=== PATIENT | male | born 1960 | race Caucasian/White ===

== ENCOUNTER 2018-05-18 11:30 | Emergency (ER) | payer OTHER ==
[~2018-05-18] VITALS: Ht 185.4 cm; Wt 101.6 kg
[~2018-05-18 11:30] MED LIST: ACID1TAB7 PO; CLIN300C8 PO
[2018-05-18 11:38] VITALS: BP 182/116
[2018-05-18] MEDS ORDERED: DIPH,PERTUSS(ACELL),TET VAC/PF 0.5 ML IM-VACC ONE ×2 (12:07→12:30)
[2018-05-18] MEDS ORDERED: BACITRACIN ZINC OINT 500U/GM, 0.9 GM ONE ×2 (12:07→12:23)
== END 2018-05-18 12:45 | disposition home or self-care (01) ==
LOC: ED 12:28
DX: S01.01XA Laceration without foreign body of scalp, initial encounter (principal); X58.XXXA Exposure to other specified factors, initial encounter; Y93.89 Activity, other specified; Y92.89 Other specified places as the place of occurrence of the external cause; Y99.8 Other external cause status; Y92.9 Unspecified place or not applicable
CPT/HCPCS: 90471; 90715; 99283